=== PATIENT | male | born 1960 | race Caucasian/White ===

== ENCOUNTER → 2018-04-23 | Outpatient (CLI) | payer BC ==
[~2018-04-23] MED LIST: ASPIRIN325 MG PO; BENTYL20 MG PO; CITRUCEL907 G1 PO; COLACE100 MG PO; CRESTOR20 MG PO; FLECAINIDE ACE100 MG PO; FOLIC ACID1 MG PO; FUROSEMIDE20 MG PO; IRON160 M1 PO; LISINOPRIL-HCT1 EACH PO; LOVAZA1 GM PO; METHOTREXATE2.5 MG PO; METOPROLOL SUCC25 MG PO; PERCOCET 5/31 TABLET PO; POTASSIUM CHLO10 ME3 PO; PRADAXA150 MG PO; PREVACID SOLUTA30 MG PO; PREVACID30 MG PO; SIMVASTATIN40 MG PO; SYNTHROID100 MCG PO; ZOFRAN4 MG PO
== END | disposition home or self-care (01) ==
LOC: NUC 07:17
DX: R94.39 Abnormal result of other cardiovascular function study (principal)
CPT/HCPCS: 78452; 93017; A9500; J2785

== ENCOUNTER 2018-05-09 09:26 | Day surgery (SDC) | payer BC ==
[~2018-05-09] VITALS: Ht 170.2 cm; Wt 117.9 kg
[~2018-05-09 09:26] MED LIST changes: +ASPIR-LOW81 MG PO; +ISOSORBIDE MONO30 MG PO; -METOPROLOL SUCC25 MG PO; +METOPROLOL SUCC50 MG PO; +OTEZLA30 MG PO; +TALTZ AUTO80 MG/1 M1 SC; +XARELTO20 MG PO
[2018-05-09 10:17] LABS: BASOPHIL (%) 0.9 % (0-1); BASOPHIL COUNT 0.1 K/uL (0-0.1); EOSINOPHIL (%) 3.4 % (0-5); EOSINOPHIL COUNT 0.2 K/uL (0-0.3); HEMATOCRIT 41.6 % (38.0-50.0); HEMOGLOBIN 14.6 G/DL (12.5-16.6); IMMATURE GRANULOCYTE (%) 0.4 % (0.0-0.7); LYMPHOCYTE (%) 11.7 % (15-42); LYMPHOCYTE COUNT 0.6 K/uL (1.0-2.8); MCH 34.3 PG (29.0-34.0); MCHC 35.1 G/DL (30.0-36.0); MCV 97.7 FL (86-99); MONOCYTE (%) 7.8 % (3-12); MONOCYTE COUNT 0.4 K/uL (0-0.8); NEUTROPHIL (%) 75.8 % (45-76); NEUTROPHIL COUNT 4.1 K/uL (1.8-6.4); PLATELET COUNT 268 K/uL (156-360); RBC DIS.WIDTH-CV 14.6 % (11.8-14.6); RBC DIS.WIDTH-SD 51.8 % (39-53); RED BLOOD COUNT 4.26 M/uL (4.00-5.50); WHITE BLOOD COUNT 5.4 K/uL (4.1-10.2)
[2018-05-09 10:42] LABS: CHLORIDE 102 MEQ/L (99-109); SODIUM 139 MEQ/L (136-147)
[2018-05-09 10:47] LABS: GFR ESTIMATE (CALCULATED) > 59 mL/min/ (58.99-99999); GLUCOSE 120 mg/dL (70-99); UREA NITROGEN (BUN) 21 mg/dL (9-23)
== END 2018-05-09 19:42 | disposition home or self-care (01) ==
LOC: CATH 09:26
PROVIDERS: Internal Medicine Cardiovascular Disease
DX: I25.10 Atherosclerotic heart disease of native coronary artery without angina pectoris (principal); I25.82 Chronic total occlusion of coronary artery; Z95.1 Presence of aortocoronary bypass graft
CPT/HCPCS: 80048; 85025; C1769; C1887; C1894; J1644; J2250; J3010; J7040